=== PATIENT | male | born 1990 | race Caucasian/White ===

== ENCOUNTER → 2018-10-16 | Day surgery (SDC) | payer BC ==
[~2018-10-16] MED LIST: ADDERALL 20 MG20 MG PO; ADDERALL XR 3030 MG PO; FENTANYL CITRATE/PF 100MCG/2 ML INJ ONE; HYOSCYAMINE 0.125 MG TAB ONE; LIDOCAINE HCL 2% LOCAL INJ 5 ML SDV VIAL INJ ONE; MIDAZOLAM HCL 2 MG/2 ML VIAL ONE; PROPOFOL IV EMULSION 10 MG/ML 50 ML VIAL ONE
--- OUTSIDE RECORDS SUMMARY | 2018-10-16 14:19 | XMS REPORT | Continuity of Care Document ---
Author Author [facility] Address Unknown Phone Unavailable Care Team Providers Care Manager Foreign Name Role Phone [employer] Information [employer] Unavailable Unavailable Problems Problem Status Onset Date Classification Date Reported Comments Source Acute bronchitis 07/25/2017 Diagnosis 07/25/2017 [facility] Body mass index 25-29 - overweight 07/25/2017 Diagnosis 07/25/2017 [facility] Acute pharyngitis Problem 07/25/2017 [facility] Allergic rhinitis Problem 07/25/2017 [facility] Medications Medication Details Route Status Patient Instructions Ordering Provider Order Date Source Brompheniramine Maleate 0.4 MG/ML / Dextromethorphan Hydrobromide 2 MG/ML / Pseudoephedrine Hydrochloride 6 MG/ML Oral Solution [Bromfed DM] Bromfed DM 2 mg-30 mg-10 mg/5 mL syrup Take 10 mL every 4-6 hours by oral route as needed for 5 days. Active [facility] 24 HR Amphetamine aspartate 7.5 MG / Amphetamine Sulfate 7.5 MG / Dextroamphetamine saccharate 7.5 MG / Dextroamphetamine Sulfate 7.5 MG Extended Release Oral Capsule dextroamphetamine-amphetamine ER 30 mg 24hr capsule,extend release Active [facility] Fluticasone propionate 0.05 MG/ACTUAT Metered Dose Nasal [place] fluticasone 50 mcg/actuation nasal spray,suspension [place] 2 sprays every day by intranasal route. Active [facility] 200 ACTUAT Albuterol 0.09 MG/ACTUAT Metered Dose Inhaler [Ventolin] Ventolin HFA 90 mcg/actuation aerosol inhaler Inhale 2 puffs every 4- 6 hours by inhalation route as needed for 7 days. Active [facility] Allergies, Adverse Reactions, Alerts Substance Category Reaction Severity Reaction type Status Date Reported Comments Source Augmentin Allergy to substance 06/05/2009 [facility] Immunizations No Data Provided for This Section Results No Data Provided for This Section Pathology Reports No Data Provided for This Section Diagnostic Reports No Data Provided for This Section Consultation Notes No Data Provided for This Section Discharge Summaries No Data Provided for This Section History and Physicals No Data Provided for This Section Vital Signs Vital Sign Value Date Comments Source Diastolic (mm Hg) 70 07/25/2017 [facility] Height 68 07/25/2017 [facility] Systolic (mm Hg) 110 07/25/2017 [facility] Weight 170 07/25/2017 [facility] Encounters Location Location Details Encounter Type Encounter Number Reason For Visit Attending Provider ADM Date DC Date Status Source [place] - [facility] - [id number] Toney, AIR POLLUTION ANALYST: [address] [place] [address], Ph. [id number] Reta Toney 07/25/2017 [facility] Procedures No Data Provided for This Section Assessment and Plan No Data Provided for This Section Plan of Care No Data Provided for This Section Social History Social History Date Source Smoking Status Never Smoker 07/25/2017 [facility] Family History No Data Provided for This Section Advance Directives No Data Provided for This Section Functional Status No Data Provided for This Section
--- OUTSIDE RECORDS SUMMARY | 2018-10-16 14:19 | XMS REPORT ---
Author Author [facility] Address Unknown Phone Unavailable Care Team Providers Care Bullard Machine Operator Name Role Phone Unavailable Unavailable Problems This patient has no known problems. Allergies, Adverse Reactions, Alerts This patient has no known allergies or adverse reactions. Medications This patient has no known medications.
--- OUTSIDE RECORDS SUMMARY | 2018-10-16 14:19 | XMS REPORT | Encounter Summary ---
Author Organization Unknown Address [address] [place] [id number] Phone [phone] Reason for Visit Medical Complaint Instructions 1. Body mass index 25-29 - overweight body mass index: care instructions A healthy lifestyle: care instructions 2. Acute bronchitis bronchitis: care instructions Bromfed DM 2 mg-30 mg-10 mg/5 mL syrup Ventolin HFA 90 mcg/actuation aerosol inhaler Discussion Note: None recorded. Plan of Care Reminders Provider Appointments None recorded. Lab None recorded. Referral None recorded. Procedures None recorded. Surgeries None recorded. Imaging None recorded. Medications Name Start Date Bromfed DM 2 mg-30 mg-10 mg/5 mL syrup Take 10 mL every 4-6 hours by oral route as needed for 5 days. dextroamphetamine-amphetamine ER 30 mg 24hr capsule,extend release fluticasone 50 mcg/actuation nasal spray,suspension [place] 2 sprays every day by intranasal route. Ventolin HFA 90 mcg/actuation aerosol inhaler Inhale 2 puffs every 4-6 hours by inhalation route as needed for 7 days. Medications Administered None recorded. Vitals Height Weight BMI Blood Pressure 5 ft 8 in 170 lbs 25.8 kg/m2 110/70 mm[Hg] Lab Results None recorded. Allergies Code Code System Name Reaction Severity Status Onset 346272 RxNorm Augmentin Active Problems Name Status Onset Date Source Acute Pharyngitis Active Encounter Allergic Rhinitis Active Encounter Procedures None recorded. Vaccine List None recorded. Social History Smoking Status Never Smoker Past Encounters 07/25/2017 Body Mass Index 25-29 - Overweight; Acute Bronchitis eRta Toney [employer]: [address], [place] [address], Ph. History of Present Illness Brbkt-Xboilnmjuw-Aiuwbem Reported By: Patient HPI: Location: head/sinuses. Quality: productive cough, nasal/sinus congestion. Duration: 7days. Severity: moderate, pain level 4/10. Onset/Timing: gradual. Context: no foreign travel, non-smoker, sick contact. Modifying factors: ; finished Z pack for sore throat. Associated Symptoms: yellow-green, thick sputum, morning cough, headache; sinus pressure Review of Systems:ROS as noted in the HPI Review of Systems None recorded. Physical Exam Adult Basic Reported By: Patient Constitutional: General Appearance: healthy-appearing, well-nourished, well-developed. Level of Distress: mild distress. Ambulation: ambulating normally Psychiatric: Mental Status: active and alert. Orientation: to time, to place, to person Zzm-Buec-Geqma-Throat: Nose: no lesions on external nose, nares patent, no septal deviation, nasal passages clear, no sinus tenderness, post nasal drip. Lips, Teeth, and Gums: no mouth or lip ulcers, no bleeding gums, normal dentition. Oropharynx: moist mucous membranes, no exudates, tonsils not enlarged, erythema Neck: Neck: supple, FROM. Lymph Nodes: no cervical LAD Lungs: Respiratory effort: no dyspnea, no tachypnea, no use of accessory muscles, no intercostal retractions. Auscultation: rhonchi Cardiovascular: Heart Auscultation: RRR, no murmurs Musculoskeletal:: Motor Strength and Tone: normal motor strength, normal tone. Joints, Bones, and Muscles: normal movement of all extremities
--- NOTE | 2018-10-16 17:49 | Operative Report ---
DATE OF PROCEDURE: 10/16/2018 SURGEON: Simon Krause MD PROCEDURE: Colonoscopy with polypectomy and biopsies. INDICATIONS FOR COLONOSCOPY: History of rectal bleeding. MEDICATIONS: The patient was done under MAC, please see anesthesiologist's note. PROCEDURE IN DETAIL: With the patient in left lateral decubitus position, flexible fiberoptic Olympus colonoscope was inserted into the rectum with ease and advanced all the way to the cecum. Mucosa overlying the cecum appeared to be within normal limits. The ileocecal valve was intubated and the scope was advanced into the terminal ileum. There were some ulcerations noted in the terminal ileum and biopsies were obtained. The scope was then withdrawn slowly, mucosa overlying the ascending colon, transverse colon grossly appeared to be within normal limits. There were some mild patchy inflammatory changes noted in the left colon. Random biopsies were obtained. Two minute polyps were hot biopsied from the sigmoid colon. The scope was then retroflexed into the distal rectum. Small internal hemorrhoids were noted, none of which was actively bleeding. The scope was then straightened out, it was subsequently withdrawn and an anal fissure was noted on the way out. There was no active bleeding. Stool was secured and sent for the appropriate studies. The patient tolerated the procedure well. IMPRESSION: 1. Ulcerative ileitis, biopsies obtained. 2. Mild patchy left-sided colitis. 3. Internal hemorrhoids. 4. Anal fissure. PLAN: Follow up histology. Follow up stool studies. Start Visbiome one p.o. b.i.d. and Anusol HC suppositories b.i.d. x10 days and p.r.n. If bleeding recurs, we will consider referral to Dr. Radha Gomes for fissurectomy. Check IBD panel, CRP and sedimentation rate. Simon Krause MD [facility] [place]/MODL /[id number] cc: Seun Tapia DO
[2018-10-16 17:52] LABS: WBC,FECAL (FECAL LACTOFERRIN) NEGATIVE (NEGATIVE)
[2018-10-17 12:45] LABS: C DIFFICILE TOXIN A&B AMP PROB NEGATIVE (NEGATIVE)
--- OUTSIDE RECORDS SUMMARY | 2018-10-18 17:01 | XMS REPORT | Continuity of Care Document ---
Author Author [facility] Address Unknown Phone Unavailable Care Team Providers Care Bath Mixer Name Role Phone [employer] Unavailable Unavailable Problems Problem Status Onset Date [...] Fluticasone propionate 0.05 MG/ACTUAT Metered Dose Nasal [place] fluticasone 50 mcg/actuation nasal spray,suspension [place] 2 sprays every day by intranasal route. [...] Date Status Source [place] - [facility] - [id number] Toney, SLAG SKIMMER: [address] [place] [address], Ph. [id number] Reta Toney 07/25/2017 [facility] Procedures No Data [...]
== END | disposition home or self-care (01) ==
LOC: OR 01:45
PROVIDERS: ATTEND Internal Medicine Gastroenterology
DX: K51.90 Ulcerative colitis, unspecified, without complications (principal); K63.5 Polyp of colon; K60.2 Anal fissure, unspecified; K64.8 Other hemorrhoids; K64.4 Residual hemorrhoidal skin tags; F90.9 Attention-deficit hyperactivity disorder, unspecified type; F41.9 Anxiety disorder, unspecified; Z88.0 Allergy status to penicillin
CPT/HCPCS: 36415; 45380; 45384; 83630; 85651; 86140; 86256; 86671; 87045; 87177; 87328; 87493; J2001; J2250; J2704; J3010; 83993

== ENCOUNTER → 2019-02-14 | Day surgery (SDC) | payer BC ==
[2019-02-08 10:59] LABS: BASOPHILS % 0.7 % (0.0-1.0); EOSINOPHILS # (AUTO) 0.1 (0.0-0.4); EOSINOPHILS % 2.1 % (0.0-6.0); HEMATOCRIT 44.1 % (38.2-49.6); HEMOGLOBIN 14.6 g/dL (14.0-18.0); LYMPHOCYTES # (AUTO) 1.4 (1.0-3.2); LYMPHOCYTES % 31.9 % (18.0-39.1); MEAN CORPUSCULAR HEMOGLOBIN 29.1 pg (28-32); MEAN CORPUSCULAR HGB CONC 33.1 g/dL (31-35); MONOCYTES # (AUTO) 0.3 (0.2-0.8); NEUTROPHILS # (AUTO) 2.5 (2.1-6.9); NEUTROPHILS % 58.1 % (38.7-80.0); PLATELET COUNT 287 x10e3/uL (140-360); RED BLOOD COUNT 5.01 x10e6/uL (4.3-5.7); RED CELL DISTRIBUTION WIDTH 12.4 % (11.7-14.4)
[2019-02-08 11:20] LABS: BLOOD UREA NITROGEN 8 mg/dL (7-26); BUN/CREATININE RATIO 7 (6-25); CALCIUM 9.8 mg/dL (8.4-10.2); CARBON DIOXIDE 26 mmol/L (22-29); CHLORIDE 106 mmol/L (98-107); CREATININE, SERUM 1.13 mg/dL (0.72-1.25); EST GLOMERULAR FILTRATION RATE > 60 ML/MIN (60-); GLUCOSE 112 mg/dL (74-118); SODIUM 142 mmol/L (136-145)
[~2019-02-14] MED LIST changes: +ACETAMINOPHEN 1000 MG/100 ML IV ONE; +BUPIVACAINE 0.25%/EPI 30ML SDV INJ ONE; +DEXAMETHASONE SOD PHOS INJ 4 MG/ML VIAL ONE; -HYOSCYAMINE 0.125 MG TAB ONE; +KETOROLAC TROMETHAMINE 30 MG/ML VIAL ONE; +LIDOCAINE HCL 1% LOCAL INJ 20 ML VIAL ONE; +LIDOCAINE HCL 2% 30 ML TUBE ONE; +LIDOCAINE HCL 2% JELLY 5 ML TUBE ONE; +ONDANSETRON HCL INJ 2MG/ML 2ML 2 MG/ML VIAL ONE; +PROPOFOL IV EMULSION 10 MG/ML 20 ML VIAL ONE; -PROPOFOL IV EMULSION 10 MG/ML 50 ML VIAL ONE
[2019-02-14 10:50] VITALS: BP 112/73
--- NOTE | 2019-02-14 15:50 | Operative Report ---
DATE OF PROCEDURE: 02/14/2019 SURGEON: Napoleon Gomes MD PREOPERATIVE DIAGNOSIS: Anorectal fistula. POSTOPERATIVE DIAGNOSIS: Anorectal fistula. OPERATION PERFORMED: Anorectal fistulectomy. ELEMENTARY SECRETARY: RADHA Venegas. ANESTHESIA: General. COMPLICATIONS: None. ESTIMATED BLOOD LOSS: Minimal. DESCRIPTION OF PROCEDURE: With the patient lying in bed in the lithotomy position under good general anesthesia, the perineum was prepped with Betadine solution and draped in the usual manner. Examination at this point reveal opening of an anorectal fistula at the 12 o'clock position. A fistula probe was then easily placed into the fistula tract and the internal opening was easily evident. The fistula tract external component was then excised and the fistula tract was opened and debrided the internal opening similarly, debrided and the whole fistula was cleaned up. All of the necrotic tissue was removed. The area was then infiltrated with 0.25% Marcaine with epinephrine. Hemostasis was ascertained. A Gelfoam pack impregnated with Xylocaine was placed. A dressing was applied. The sponge, lap, and needle count was correct. The patient tolerated the procedure well and returned to the recovery room in stable condition. Napoleon Gomes MD [facility]/MODL /[id number]
== END | disposition home or self-care (01) ==
LOC: OR 06:38
PROVIDERS: ATTEND Surgery
DX: K60.5 Anorectal fistula (principal); F41.9 Anxiety disorder, unspecified; Z88.0 Allergy status to penicillin; Z01.812 Encounter for preprocedural laboratory examination
CPT/HCPCS: 36415; 46270; 80048; 85025; J0131; J1100; J1885; J2001 ×2; J2250; J2405; J2704; J3010

== ENCOUNTER → 2023-10-05 | Day surgery (SDC) | payer BC ==
[~2023-10-05] MED LIST changes: -ACETAMINOPHEN 1000 MG/100 ML IV ONE; -BUPIVACAINE 0.25%/EPI 30ML SDV INJ ONE; -DEXAMETHASONE SOD PHOS INJ 4 MG/ML VIAL ONE; -FENTANYL CITRATE/PF 100MCG/2 ML INJ ONE; +HYOSCYAMINE SULFATE 0.5 MG/ML INJ ONE; -KETOROLAC TROMETHAMINE 30 MG/ML VIAL ONE; -LIDOCAINE HCL 1% LOCAL INJ 20 ML VIAL ONE; -LIDOCAINE HCL 2% 30 ML TUBE ONE; -LIDOCAINE HCL 2% JELLY 5 ML TUBE ONE; -MIDAZOLAM HCL 2 MG/2 ML VIAL ONE; -ONDANSETRON HCL INJ 2MG/ML 2ML 2 MG/ML VIAL ONE; -PROPOFOL IV EMULSION 10 MG/ML 20 ML VIAL ONE; +PROPOFOL IV EMULSION 10 MG/ML 50 ML VIAL IV ONE
[2023-10-05] MEDS: LACTATED RINGER'S 1,000 ML ONE (08:47)
[2023-10-05 10:22] VITALS: TEMP 97.6
[2023-10-05 10:50] VITALS: BP 118/70; PULSE 108; RESP 16; O2SAT 98
== END | disposition home or self-care (01) ==
LOC: OR 08:03
PROVIDERS: ATTEND Internal Medicine Gastroenterology
DX: Z09 Encounter for follow-up examination after completed treatment for conditions other than malignant neoplasm (principal); Z86.010 Personal history of colon polyps; K51.019 Ulcerative (chronic) pancolitis with unspecified complications; K62.89 Other specified diseases of anus and rectum; K64.8 Other hemorrhoids; Z71.3 Dietary counseling and surveillance; F98.8 Other specified behavioral and emotional disorders with onset usually occurring in childhood and adolescence; Z71.89 Other specified counseling; Z88.0 Allergy status to penicillin; Z79.899 Other long term (current) drug therapy; Z68.28 Body mass index [BMI] 28.0-28.9, adult; Z80.0 Family history of malignant neoplasm of digestive organs
CPT/HCPCS: 45380; 83630; 83993; 86140; 87045; 87177; 87324; 87328; 87449; J1980; J2001; J2704; J7121; 45378

== ENCOUNTER → 2023-11-09 | Outpatient (REF) | payer BC ==
[~2023-11-09] MED LIST changes: -HYOSCYAMINE SULFATE 0.5 MG/ML INJ ONE; -LIDOCAINE HCL 2% LOCAL INJ 5 ML SDV VIAL INJ ONE; -PROPOFOL IV EMULSION 10 MG/ML 50 ML VIAL IV ONE
== END ==
LOC: DX 09:50
PROVIDERS: ATTEND Nurse Practitioner
DX: K52.9 Noninfective gastroenteritis and colitis, unspecified (principal); Z86.010 Personal history of colon polyps
CPT/HCPCS: 74250